=== PATIENT | female | born 1995 | race Caucasian/White ===

== ENCOUNTER 2018-01-03 04:00 | Inpatient (IN) ==
[2018-01-03] MEDS ORDERED: miSOPROStol 25 MCG TABLET VG PRN (04:38)
[2018-01-03] MEDS ORDERED: Naloxone 0.4 MG/ML INJ IVP PRN (04:39)
[2018-01-03] MEDS ORDERED: *HR* Nalbuphine 10 MG/ML AMPUL IVP PRN (04:39)
[2018-01-03] MEDS ORDERED: Ondansetron 4 MG/2 ML VIAL IVP PRN (04:39)
[2018-01-03] MEDS ORDERED: Metoclopramide 10 MG/2 ML VIAL IVP PRN (04:39)
[2018-01-03] MEDS ORDERED: Famotidine 20 MG/2 ML VIAL IVP PRN (04:39)
[2018-01-03] MEDS ORDERED: Ringers Solution, Lactated 1,000 ML IVC SCH (04:45)
[2018-01-03] MEDS ORDERED: Oxytocin 20 units/ LR 1000 mL 20 UNIT/1,000 ML BAG IVC SCH (04:45)
[2018-01-03] MEDS ORDERED: Ringers Solution, Lactated 1,000 ML ONE (04:49)
[2018-01-03 05:06] LABS: Basophils % 0.2 %; Eosinophils # 0.2 K/mcL (0.0-0.6); Eosinophils % 1.3 %; Hematocrit 36.9 % (35.3-44.9); Hemoglobin 12.3 g/dL (11.5-15.4); Immature Granulocytes % 1.1 % (0-4); Lymphocytes # 2.6 K/mcL (0.6-4.6); Lymphocytes % 18.6 %; Mean Corpuscular HGB Conc 33.3 g/dL (31.6-35.5); Mean Corpuscular Hemoglobin 30.1 pg (28.0-33.3); Mean Corpuscular Volume 90.4 fL (83.0-100.0); Mean Platelet Volume 11.2 fL (9.4-12.4); Monocytes # 0.8 K/mcL (0.0-1.3); Monocytes % 5.9 %; Neutrophils # 10.2 K/mcL (1.6-8.9); Platelet Count 230 K/mcL (140-400); Red Blood Count 4.08 M/mcL (3.82-4.97); Red Cell Distribution Width 12.9 % (11.5-14.5); Segmented Neutrophils % 72.9 %
[2018-01-03 05:12] LABS: Amphetamine Screen,Urine Negative ng/mL (Cutoff=1000); Barbiturate Screen,Urine Negative ng/mL (Cutoff=200); Benzodiazepines Screen,Urine Negative ng/mL (Cutoff=200); Cannabinoid Screen,Urine Negative ng/mL (Cutoff = 50); Cocaine Screen,Urine Negative ng/mL (Cutoff= 300); Opiate Screen,Urine Negative ng/mL (Cutoff=300); Phencyclidine Screen,Urine Negative ng/mL (Cutoff=25)
[2018-01-03] MEDS ORDERED: miSOPROStol 25 MCG TABLET PO PRN (10:16)
--- NOTE | 2018-01-03 10:59 | OB/GYN History & Physical ---
Date of Encounter: 01/03/18 Time of Encounter: 10:56 Assessment and Plan (1) 40 weeks gestation of Current visit: Yes Status: Acute Admit for IOL GBS negative Cytotec Consider AROM and/or pitocin Anticipate vaginal delivery POC per consult with Dr Lee History of Present Illness Chief complaint: IOL HPI: Ms. Roman is a 22 year old at 40 weeks and 0 days gestation that presents to labor and delivery for IOL. She has had adequate care and has been seen by Dr Singh for this . She denies any complications with this and previous pregnancies. She states positive movement. She denies headache, vision changes, leaking of fluid, vaginal bleeding, cramping or contractions Labs: GBS neg Blood type O- Hep B NR RPR NR Varicella immune rubella immune HIV NR Past Med Surg Social Fam HX - Past Medical History Medical history: no medical history Psychiatric history: no psych history - Past Surgical History Surgical History: no surgical history - Social History Smoking Status: Never smoker Smokeless Tobacco Status: No Alcohol use: none Drug use: none - Family History Mother Hx Family Cardiac Disorders: No Hx Family Respiratory Disorders: No Hx Family Cancer: No Hx Family GI Disorders: No Hx Family Genitourinary Disorders: No Hx Family Endocrine Disorder: No Hx Family Musculoskeletal Disorders: No Hx Family Neuromuscular Disorders: No Hx Family Neurologic Disorders: No Hx Family HEENT Disorders: No Hx Family Autoimmune Disorders: No Hx Family Reproductive Disorders: No Hx Family Psychosocial Disorders: No Hx Family Medical Disorders: No Obstetrical History - Pregnancies : 4 Para: 2 Term: 2 : 0 Ab's: 1 Livin Medications and Allergies Vit #108/Iron/FA [ One Tablet] 1 tab PO DAILY 01/03/18 [History] Allergy/AdvReac Type Severity Reaction Status Date / Time No Known Allergies Allergy Verified 01/03/18 04:31 Exam - Constitutional Constitutional: well developed, well nourished, no acute distress, average body habitus - HEENT HEENT: Normocephaly, Mucus Membranes Moist - Neck Neck exam: full ROM - Lungs Respiratory exam: CTAB - Cardiovascular Cardiovascular exam: RRR, +S1, +S2 - Abdomen Abdomen: Present: bowel sounds normal, gravid, non tender - Extremities Extremities exam: normal capillary refill, normal inspection, radial pulses palpable and symmetrical Deep Tendon Reflex Grade: 2+ Normal - Vulva Vulva: bilateral: normal - Vagina Vagina: Present: normal moisture - Cervix Dilation: 2 Effacement: 80 Station: -2 - Uterus Uterus exam: Present: normal size, normal contour - Anus/Rectum Anus/Rectum: Present: normal perianal skin Results Result Diagrams: 01/03/18 04:33 Abnormal lab results WBC 14.0 K/mcL (4.3-11.1) H 01/03/18 04:33 Neutrophils # 10.2 K/mcL (1.6-8.9) H 01/03/18 04:33 All other labs normal. - VTE Reasons for not Prescribing Prophylaxis: Treatment not Indicated - Low risk for VTE
--- NOTE | 2018-01-03 19:29 | OB Labor Progress Note ---
Date of Encounter: 01/03/18 Time of Encounter: 14:50 Labor Progress Note - Subjective Subjective: Patient comfortable in bed - Vital Signs Vital Signs: VSS - Cervix Cervix: 2-3/80/-1 - Heart Tones Heart Tones: 155 category I - [place]: Contractions irritability - Interventions Interventions: AROM for light stained mec scant amount of fluid. - Plan Plan: Continue routine labor management GBS negative Consider pitocin for augmentation Anticipate vaginal delivery POC per consult with Dr Lee
[2018-01-03] MEDS ORDERED: Acetaminophen 325 MG TABLET PO ONE (20:13)
[2018-01-03] MEDS ORDERED: Epidural Premix (fent/bupiv) 110 ML EP SCH (21:45)
--- NOTE | 2018-01-03 22:53 | Anesthesia Evaluation PreOp ---
Date of Encounter: 01/03/18 Time of Encounter: 22:15 - Past History Planned Operation: bry Cardiac History: Denies any Significant Hx Pulmonary History: Denies Any Significant HX SCALE ATTENDANT History: Denies Any Significant HX Other Medical History: Denies Any Significant HX Anesthesia History: No Prior Anesthetic Complications : Yes Test: Positive Alcohol Use: none Drug use: none Medications and Allergies Vit #108/Iron/FA [ One Tablet] 1 tab PO DAILY 01/03/18 [History] Allergy/AdvReac Type Severity Reaction Status Date / Time No Known Allergies Allergy Verified 01/03/18 04:31 - Meds/Allergy Pre-op Review Medications Reviewed: Yes Allergies Reviewed: Yes Beta Blockers on Current Med List: No Anesthesia Results - Labs 01/03/18 04:33 Anesthesia Exam Height: 72 Weight: 116kg NPO (# of Hours): mn Pain Scale: 8 - HEENT Pupil (Motor): Pupils equal Mallampati: II Teeth: Normal Oral Opening: Greater than 3 - SCALE ATTENDANT LOC: Oriented SCALE ATTENDANT Motor: Normal RUE, Normal LUE, Normal RLE, Normal LLE, Normal Face SCALE ATTENDANT Sensory: Normal: RUE, LUE, RLE, LLE, Face - Cardiac Rhythm: Regular Murmur: None JVD: No Carotid Bruit: No - Pulmonary Breath Sounds: bilateral Clear Respiratory Effort: Symmetrical Anesthesia Assess/Plan ASA Score: 1 Modified Juvencio Scale for Level of Consciousness: Cooperative, oriented, and tranquil Anesthetic Plan: Regional Autologous Blood: No Monitoring Plan: Standard Monitors
--- NOTE | 2018-01-03 22:55 | Anesthesia Procedures ---
Date of Encounter: 01/03/18 Time of Encounter: 22:15 Procedures: Anesthesia - Epidural/Spinal Patient ID/Chart reviewed: Yes Patient examined: Yes OB Eval: Gestational age: 40 OB Eval: : 4 OB Eval: Hx Para: 2 OB Eval: Dilated at (cm): 3 OB Eval: Contractions: Non-stressed pattern Consent Obtained: Yes Supplemental Oxygen: None/Room Air Site Prep: Aseptic Technique, Sterile prep and drape, Povidone-Iodine 1% Patient position: upright Amount of Local Anesthetic used: 3 Touhy Needle Gauge: 18 Touhy Needle Depth (cm): 6 Catheter Depth at Skin (cm): 10 Test Dose (1.5% Lido + Epi): Volume given (mls): 3 Test Dose Result: Negative Infusion Rate (mls/hr): [address]: Tegaderm Interspace Used: L4-L5 Loss of Resistance (CABRERA): Yes Blood: No CSF: No Paresthesia: No Vitals + FHT's: stable throughout, epidural with ease first attempt. VSS FHTS
--- NOTE | 2018-01-04 01:25 | OB Labor Progress Note ---
Date of Encounter: 01/04/18 Time of Encounter: 01:23 Labor Progress Note - Subjective Subjective: Resting comfortably with epidural in place - Vital Signs Vital Signs: VSS - Cervix Cervix: 4/90/-1 - Heart Tones Heart Tones: 140 category tracing - Louin Louin: contractions every 1.5-4 minutes - Interventions Interventions: IPUC placed without difficulty. Patient and fetus tolerated well - Plan Plan: Continue routine labor management GBS negative Continue to titrate pitocin to adequate labor patttern Anticipate vaginal delivery POC per consult with Dr Lee
[2018-01-04] MEDS ORDERED: 0.9 % Sodium Chloride 1,000 ML ONE ×2 (05:06→08:11)
--- NOTE | 2018-01-04 08:44 | OB Labor Progress Note ---
Date of Encounter: 01/04/18 Time of Encounter: 08:41 Labor Progress Note - Subjective Subjective: patient is comfortable - Vital Signs Vital Signs: VSS - Cervix Cervix: 6-7cm - Heart Tones Heart Tones: CAT 2 - Plan Plan: amnioinfusion running, restart pitocin, patient AROM'ed at 3cm 2PM 01/03, anticipate
--- NOTE | 2018-01-04 10:45 | OB Labor Progress Note ---
Date of Encounter: 01/04/18 Time of Encounter: 10:43 Labor Progress Note - Subjective Subjective: patient comfortable - Vital Signs Vital Signs: VSS - Cervix Cervix: 7/90% - Heart Tones Heart Tones: CAT 1 - Plan Plan: keep going up on pitocin now at 6, ruptured now 18hrs without signs of chorio, cont monitoring strip
[2018-01-04] MEDS ORDERED: Bupivacaine-MPF 0.25% 10 ML VIAL ONE (12:41)
--- NOTE | 2018-01-04 12:47 | OB Labor Progress Note ---
Date of Encounter: 01/04/18 Time of Encounter: 12:46 Labor Progress Note - Subjective Subjective: patient feeling more of her ctxs - Vital Signs Vital Signs: VSS - Cervix Cervix: FT - Heart Tones Heart Tones: CAT 1 - Plan Plan: patient received cervidil at 10:30AM, recheck in 12 hrs
[2018-01-04] MEDS ORDERED: *HR* FentaNYL (PF) 100 MCG/2 ML VIAL ONE (12:50)
[2018-01-04] MEDS ORDERED: *HR* Ropivacaine/PF 0.2% 20 ML VIAL ONE (12:50)
--- NOTE | 2018-01-04 12:51 | OB Labor Progress Note ---
Date of Encounter: 01/04/18 Time of Encounter: 12:51 Labor Progress Note - Subjective Subjective: patient is feeling more pressure - Vital Signs Vital Signs: VSS - Cervix Cervix: 9cm - Heart Tones Heart Tones: CAT 1 - Plan Plan: anticipate
--- NOTE | 2018-01-04 13:13 | Anesthesia Progress Note ---
Date of Encounter: 01/04/18 Time of Encounter: 12:45 Anesthesia Note - Note Note: Called to patient bedside to evaluate breakthrough pain. Patient describes pain all over lower abdomen. Confirmed proper placement of catheter. 10mL of 0.125%bupi + 50mcg fentanyl administered. Patient only reports mild improvement in pain relief so additional 5mL of 0.2% ropivicaine+ 50mcg fentanyl administered. Patient describes significant improvement in pain. Now describes as just "pressure". VSS 01/04/18 13:09
--- NOTE | 2018-01-04 13:45 | OB/GYN Procedure Note ---
Delivery - Delivery Date: 01/04/18 Provider: Jose L Singh Intrapartum events: none Delivery induction: AROM, oxytocin Delivery augmentation: rupture of membranes Delivery monitor: external FHT, external uterine Anesthesia: epidural Quantitated Blood Loss: 400 - Repair Episiotomy: none Laceration Description: Perineal - 1st Degree - Complications Delivery complications: retained placenta - Disposition Mom disposition: stable in LDR Lawson disposition: stable in LDR - Comments Comments: 22 y/o delivered a viable male infant weighing 4110g (9lbs 0z) @ 1317hrs. Placenta delivered @ 1321 hrs. Infant delivered IRMA, nuchal x 1, APGARs 3/9. 1st degree perineal laceration repaired with 3-0 vicryl, EBL 400, manual extraction performed to removed placenta remnants due to slow trickling of bleeding. Hemabate 250mcg given x 1 and 100mcg of cytotec given rectally. SARAH Morgan gloved and gowned and assisted me.
[2018-01-04] MEDS ORDERED: miSOPROStol 100 MCG TABLET RC STA (13:59)
[2018-01-04] MEDS ORDERED: Diphenoxylate/Atropine 1 TAB TABLET PO ONE (14:31)
[2018-01-04] MEDS ORDERED: Piperacillin/Tazobactam 3.375 GM in 0.9 % Sodium Chloride Mini Bag 100 ML IVPB SCH ×2 (16:00→23:00)
[2018-01-04] MEDS ORDERED: Oxytocin 20 units/ LR 1000 mL 20 UNIT/1,000 ML BAG IVC SCH (17:34)
[2018-01-04] MEDS ORDERED: Benzocaine/Menthol 56 GM AEROSOL SPRAY TP PRN (17:34)
[2018-01-04] MEDS ORDERED: Rho Immune Globulin 1,500 UNIT SYRINGE IM PRN (17:34)
[2018-01-04] MEDS ORDERED: Ibuprofen 600 MG TABLET PO PRN (17:34)
[2018-01-04] MEDS ORDERED: Lanolin 7 G OINT...G. TP PRN (17:34)
[2018-01-04] MEDS ORDERED: Acetaminophen 325 MG TABLET PO PRN (17:34)
[2018-01-04] MEDS ORDERED: Diphenoxylate/Atropine 1 TAB TABLET PO PRN (17:34)
[2018-01-04] MEDS ORDERED: miSOPROStol 100 MCG TABLET PO ONE (17:39)
[2018-01-04] MEDS: Piperacillin/Tazobactam 3.375 GM in 0.9 % Sodium Chloride Mini Bag 100 ML IVPB SCH (23:27)
[2018-01-05 04:58] LABS: Basophils # 0.1 K/mcL (0.0-0.2); Basophils % 0.3 %; Eosinophils # 0.2 K/mcL (0.0-0.6); Eosinophils % 1.1 %; Hematocrit 31.4 % (35.3-44.9); Immature Granulocytes % 0.9 % (0-4); Lymphocytes # 2.6 K/mcL (0.6-4.6); Lymphocytes % 12.6 %; Mean Corpuscular HGB Conc 33.1 g/dL (31.6-35.5); Mean Corpuscular Hemoglobin 30.1 pg (28.0-33.3); Mean Corpuscular Volume 90.8 fL (83.0-100.0); Mean Platelet Volume 10.7 fL (9.4-12.4); Monocytes # 1.5 K/mcL (0.0-1.3); Monocytes % 7.4 %; Neutrophils # 15.8 K/mcL (1.6-8.9); Platelet Count 201 K/mcL (140-400); Red Blood Count 3.46 M/mcL (3.82-4.97); Red Cell Distribution Width 13.2 % (11.5-14.5); Segmented Neutrophils % 77.7 %
[2018-01-05 05:01] LABS: Hemoglobin 10.4 g/dL (11.5-15.4)
[2018-01-05 08:07] VITALS: BP 113/72
[2018-01-05] MEDS ORDERED: Prenatal Vit/FA 1 EACH TABLET PO SCH (09:00)
[2018-01-05] MEDS: Piperacillin/Tazobactam 3.375 GM in 0.9 % Sodium Chloride Mini Bag 100 ML IVPB SCH (09:02)
--- NOTE | 2018-01-05 10:50 | Discharge Summary ---
Date of Encounter: 01/05/18 Time of Encounter: 10:48 - Discharge Diagnosis (1) Vaginal delivery Priority: Primary Status: Acute Comments: Pt meeting all milestones. Anticipate discharge home this evening as long as bleeding is light and pt feels well. (2) Patient is a currently breast-feeding mother Priority: Secondary Status: Acute - Discharge Medications Prescriptions: Ibuprofen [Motrin] 600 mg PO Q6HR PRN #30 tablet PRN Reason: Cramping Docusate [Colace] 100 mg PO BID #60 capsule Home Medications: Vit #108/Iron/FA [ One Tablet] 1 tab PO DAILY 01/03/18 [History] Benzocaine/Menthol Epping [Dermoplast Epping] 1 appl TP QID PRN aerosol 01/05/18 [Rx] Docusate [Colace] 100 mg PO BID #60 capsule 01/05/18 [Rx] Ibuprofen [Motrin] 600 mg PO Q6HR PRN #30 tablet 01/05/18 [Rx] Lanolin [Lansinoh] 1 appl TP TID PRN oint...g. 01/05/18 [Rx] Allergies/Adverse Reactions: Allergy/AdvReac Type Severity Reaction Status Date / Time No Known Allergies Allergy Verified 01/03/18 04:31 Data Procedures and tests throughout hospitalization: Laboratory Tests 01/03/18 01/03/18 01/03/18 04:33 04:33 04:33 WBC 14.0 H RBC 4.08 Hgb 12.3 Hct 36.9 MCV 90.4 MCH 30.1 MCHC 33.3 RDW 12.9 Plt Count 230 MPV 11.2 Immature Gran % 1.1 Seg Neutrophils % 72.9 Lymphocytes % 18.6 Monocytes % 5.9 Eosinophils % 1.3 Basophils % 0.2 Neutrophils # 10.2 H Lymphocytes # 2.6 Monocytes # 0.8 Eosinophils # 0.2 Basophils # 0.0 Urine Opiates Screen Negative Ur Barbiturates Screen Negative Ur Phencyclidine Scrn Negative Ur Amphetamines Screen Negative U Benzodiazepines Scrn Negative Urine Cocaine Screen Negative U Marijuana (THC) Screen Negative Ur Drug Screen Interp See Below Hep Bs Antigen Nonreactive Baby's Blood Type Mother's Blood Type Rhogam Indicated 01/04/18 01/05/18 14:05 04:43 WBC 20.4 H RBC 3.46 L Hgb 10.4 L D Hct 31.4 L MCV 90.8 MCH 30.1 MCHC 33.1 RDW 13.2 Plt Count 201 MPV 10.7 Immature Gran % 0.9 Seg Neutrophils % 77.7 Lymphocytes % 12.6 Monocytes % 7.4 Eosinophils % 1.1 Basophils % 0.3 Neutrophils # 15.8 H Lymphocytes # 2.6 Monocytes # 1.5 H Eosinophils # 0.2 Basophils # 0.1 Urine Opiates Screen Ur Barbiturates Screen Ur Phencyclidine Scrn Ur Amphetamines Screen U Benzodiazepines Scrn Urine Cocaine Screen U Marijuana (THC) Screen Ur Drug Screen Interp Hep Bs Antigen Baby's Blood Type O RH NEGATIVE Mother's Blood Type O RH NEGATIVE Rhogam Indicated NO Labs on day of discharge: Labs from last 24 hours 01/05/18 01/04/18 04:43 14:05 WBC 20.4 H RBC 3.46 L Hgb 10.4 L D Hct 31.4 L MCV 90.8 MCH 30.1 MCHC 33.1 RDW 13.2 Plt Count 201 MPV 10.7 Immature Gran % 0.9 Seg Neutrophils % 77.7 Lymphocytes % 12.6 Monocytes % 7.4 Eosinophils % 1.1 Basophils % 0.3 Neutrophils # 15.8 H Lymphocytes # 2.6 Monocytes # 1.5 H Eosinophils # 0.2 Basophils # 0.1 Baby's Blood Type O RH NEGATIVE Mother's Blood Type O RH NEGATIVE Rhogam Indicated NO Date of admission: 01/03/18 04:04 Primary care physician: LAMIN SEVERINO Consults: 01/04/18 17:34 Consult to Retail Pricing Coordinator [CONS] Routine Comment: Vaginal delivery, consult needed Discharging clinician: Veena Tomlinson Anticipated date of discharge: 01/05/18 - Patient Status Disposition: Home, Self-Care Condition: Good Functional capacity at discharge: independent ambulation Overall status at discharge: patient is progressing back to baseline - Discharge Instructions Follow Up With: NONE,PCP [Primary Care Provider] - - Diet and Activity Activity: increase activity as tolerated Diet: regular diet Hospital Course Reason for admission: induction of labor Delivery: Episiotomy: none Laceration: 1st degree Other procedures: none complications: none Discharge diagnosis: IUP at term delivered Parker baby: male Hospital course: - Delivery Date: 01/04/18 Provider: Jose L Singh Intrapartum events: none Delivery induction: AROM, oxytocin Delivery augmentation: rupture of membranes Delivery monitor: external FHT, external uterine Anesthesia: epidural Quantitated Blood Loss: 400 - Repair Episiotomy: none Laceration Description: Perineal - 1st Degree - Complications Delivery complications: retained placenta - Disposition Mom disposition: stable in LDR disposition: stable in LDR Time Attestation: Total time spent providing and/or coordinating discharge services: Time Spent: Less than 30 minutes Exam - Constitutional Vitals: Temp Pulse Resp BP Pulse Ox 97.6 F 88 16 113/72 97 01/05/18 08:06 01/05/18 08:06 01/05/18 08:06 01/05/18 08:06 01/05/18 08:06 General appearance IM: A&O X 3 - Respiratory Respiratory exam: Present: CTAB - Cardiovascular Cardiovascular exam IM: Present: RRR - GI/Abdominal GI/Abdominal exam IM: soft - Uterine Tone: Firm Uterus Position: At Umbilicus - Extremities Exam Extremities exam IM: Present: normal inspection - Neurological Exam Neurological exam: normal gait, oriented X3 - Psychiatric Additional comments: reports good mood
== END 2018-01-05 17:40 | disposition home or self-care (01) | DRG 807 ==
LOC: 1NENULAB 04:04 → 1NENUOBS 01-04 17:34
PROVIDERS: ADMIT Student in an Organized Health Care Education/Training Program; ATTEND Student in an Organized Health Care Education/Training Program